=== PATIENT | female | born 1955 | race Caucasian/White ===

== ENCOUNTER → 2024-07-07 | Outpatient (CLI) | payer MEDICARE, SELFPAY ==
--- NOTE | 2024-07-07 17:53 | RAD_ITS ---
INDICATION: PAIN EXAMINATION/TECHNIQUE: X-RAY - XR Spine Lumbar 2 or 3 Views COMPARISON: No relevant prior comparison study available FINDINGS: VERTEBRAE: Demineralization of the osseous structures. Moderate to severe compression fracture of L2 and L3 vertebrae. Compression fracture of L1 vertebra treated with vertebroplasty. Otherwise no acute fracture is seen. No spondylolisthesis. Preservation of the normal lumbar lordosis. No substantial scoliosis. DISCS: Disc spaces are maintained. INCLUDED ABDOMEN: Included bowel gas pattern is non-obstructive. Left hip pinning. RAD/Lumbar Spine 2 or 3 Views IMPRESSION: Fractures of L2 and L3 vertebrae probably chronic. Demineralization of the osseous structures. Electronically Signed: Bryce Ramos MD at 18:12 EST ,
== END | disposition home or self-care (01) ==
PROVIDERS: Referring Provider Anesthesiology; Visit Provider Anesthesiology
DX: M54.16 Radiculopathy, lumbar region (principal)
CPT/HCPCS: 72100

== ENCOUNTER → 2024-08-30 | Outpatient (CLI) | payer MEDICARE, SELFPAY ==
--- NOTE | 2024-08-30 12:37 | RAD_ITS ---
EXAM: XR THORACIC SPINE, 2 VIEWS CLINICAL INDICATION: THORACIC Spondylosis TECHNIQUE: Frontal and lateral views of the thoracic spine. COMPARISON: No relevant prior studies available. FINDINGS: VERTEBRAE: Bony structures appear osteoporotic. No compression deformity of the thoracic vertebral bodies. Compression deformities of L1, L2 and L3 again seen. DISC SPACES: Normal. Disc spaces are maintained. RAD/Thoracic Spine 2 Views IMPRESSION: No compression deformity of the thoracic vertebral bodies. Electronically Signed: Dago Rojas MD at 16:57 EST ,
--- NOTE | 2024-08-30 12:37 | RAD_ITS ---
EXAM: XR LUMBOSACRAL SPINE, 2 OR 3 VIEWS CLINICAL INDICATION: LUMBAR radiculopathy TECHNIQUE: Frontal and lateral views of the lumbar spine and sacrum. COMPARISON: XR Lumbosacral Spine dated 07/07/2024 FINDINGS: VERTEBRAE: Stable compression deformities of the L1, L2 and L3 vertebral bodies. Vertebroplasty changes at L1 are stable. Facet arthropathy at L4-5 and L5-S1. DISC SPACES: No acute findings. Disc spaces are maintained. RAD/Lumbar Spine 2 or 3 Views IMPRESSION: No interval change. Electronically Signed: Dago Rojas MD at 16:56 EST ,
== END | disposition home or self-care (01) ==
LOC: RAD 12:34
PROVIDERS: Referring Provider Anesthesiology; Visit Provider Anesthesiology
DX: M47.814 Spondylosis without myelopathy or radiculopathy, thoracic region (principal); M54.16 Radiculopathy, lumbar region
CPT/HCPCS: 72070; 72100